=== PATIENT | male | born 1970 | race Caucasian/White ===

== ENCOUNTER 2022-06-20 03:43 | Emergency (ER) | payer MEDICAID, OTHER ==
--- NOTE | 2022-06-20 04:44 | ERPHSYRPT ---
- History of Present Illness Time Seen by Provider: 06/20/22 03:55 Source: patient, police Patient Subjective Stated Complaint: pt brought in by patrol police lieutenant, pt is wearing handcuffs and states that his left shoulder is hurting and feels like it is dislocated Triage Nursing Assessment: pt alert and oriented, sitting at end of bed, states l shoulder pain 6/10, pain in anterior left shoulder when palpated, no obvious deformity Physician History: This is a 51-year-old white male who was brought into the emergency department and had a cough by law enforcement. He feels his left shoulder is dislocated and he wants it to be x-rayed. Occurred: just prior to arrival Quality: constant, aching Severity of Pain-Max: mild (To moderate) Severity of Pain-Current: mild (To moderate) Extremities Pain Location: shoulder: left Modifying Factors: Improves With: movement Associated Symptoms: No chest discomfort, No jaw pain, No short of breath Allergies/Adverse Reactions: Penicillins Allergy (Verified 06/20/22 03:55) Travel Risk - International Travel Have you traveled outside of the country in past 3 weeks: No - Coronavirus Screening Are you exhibiting any of the following symptoms?: No Close contact with a COVID-19 positive Pt in past 14-21 Days: No - Vaccine Status Have you recieved a Covid-19 vaccination: No - Review of Systems Constitutional: No Symptoms Eyes: No Symptoms Ears, Nose, & Throat: No Symptoms Respiratory: No Symptoms Cardiac: No Symptoms Abdominal/Gastrointestinal: No Symptoms Genitourinary Symptoms: No Symptoms Musculoskeletal: Joint Pain (Left shoulder pain) Neurological: No Symptoms Psychological: No Symptoms Endocrine: No Symptoms Hematologic/Lymphatic: No Symptoms Immunological/Allergic: No Symptoms All Other Systems: Reviewed and Negative - Past Medical History Pertinent Past Medical History: Yes Cardiac History: Arrhythmia Psycho-Social History: Other Other Medical History: schitzophrenia - Past Surgical History Past Surgical History: Yes Other Surgical History: hernia surgeries, foot partial amputation, hand partial amputation. - Social History Smoking Status: Current every day smoker Drug Use: none Patient Lives Alone: Yes - Nursing Vital Signs Nursing Vital Signs: Initial Vital Signs Temperature 97.7 F 06/20/22 03:44 Pulse Rate 72 06/20/22 03:44 Respiratory Rate 18 06/20/22 03:44 Blood Pressure 153/104 06/20/22 03:44 O2 Sat by Pulse Oximetry 96 06/20/22 03:44 Pain Scale Pain Intensity 6 - Physical Exam General Appearance: no apparent distress Eyes, Ears, Nose, Throat Exam: normal ENT inspection, moist mucous membranes Neck Exam: normal inspection, non-tender, supple, full range of motion Cardiovascular/Respiratory Exam: chest non-tender, no respiratory distress Abdominal Exam: non-tender Back Exam: normal inspection, normal range of motion, No CVA tenderness, No vertebral tenderness Shoulder Exam: normal inspection, no evidence of injury, normal ROM Elbow/Forearm Exam: normal inspection, non-tender, no evidence of injury, normal ROM Wrist Exam: normal inspection, non-tender, no evidence of injury, normal ROM Hand Exam: normal inspection, non-tender, no evidence of injury, normal ROM Neuro/Tendon Exam: normal sensation, normal motor functions, normal tendon functions Mental Status Exam: alert, oriented x 3, cooperative Skin Exam: normal color, warm, dry SpO2 Interpretation: normal SpO2: 96 O2 Delivery: Room Air - Course Nursing assessment & vital signs reviewed: Yes Ordered Tests: Active Orders 24 hr Category Date Time Status SHOULDER Stat Exams 06/20/22 04:13 Taken - Progress Progress: unchanged Progress Note: 06/20/22 04:45 X-ray left shoulder shows no acute fracture and no acute dislocation Counseled pt/family regarding: diagnosis, need for follow-up - Departure Departure Disposition: Senior Care/Long-Term Clinical Impression: Shoulder pain, left Condition: Stable Critical Care Time: No Referrals: ASHLEY BARRIOS MD [Primary Care Provider] - Follow up/PCP as directed Additional Instructions: Use Tylenol and ibuprofen for pain control.
[2022-06-20 05:07] VITALS: BP 148/78; PULSE 89; O2SAT 95
--- NOTE | 2022-06-20 09:10 | XRAY ---
Indication: Pain. Comparison: None 3 view left shoulder demonstrates minimal acromioclavicular degenerative changes and tiny left lung calcified granuloma. No other bony, articular, or soft tissue abnormalities.
== END 2022-06-20 05:09 ==
LOC: ED 03:43
DX: M25.512 Pain in left shoulder (principal); Z28.310 Unvaccinated for COVID-19; Z72.0 Tobacco use
CPT/HCPCS: 73030; 99282